=== PATIENT | female | born 1980 | race African-American/Black ===

== ENCOUNTER 2024-08-23 18:22 | Emergency (ER) | payer OTHER ==
[~2024-08-23] VITALS: Ht 165.1 cm; Wt 73.0 kg
[2024-08-23 18:26] VITALS: TEMP 98.6; O2SAT 100
[2024-08-23 19:07] LABS: CLARITY URINE CLOUDY (CLEAR); COLOR URINE YELLOW (YELLOW); GLUCOSE URINE NEGATIVE (NEGATIVE); KETONES URINE TRACE (NEGATIVE); LEUKOCYTE ESTERASE URINE 2+ (NEGATIVE); NITRITE URINE NEGATIVE (NEGATIVE); OCCULT BLOOD URINE 2+ (NEGATIVE); PH URINE 7.5 (4.5-8.0); PROTEIN URINE 1+ (NEGATIVE)
[2024-08-23 19:26] LABS: BACTERIA URINE TRACE; SQUAMOUS EPITHELIAL CELL URINE 1+ /lpf (RARE/1+)
[2024-08-23 19:39] LABS: HEMATOCRIT. 37.3 % (36.0-48.0); HEMOGLOBIN. 11.9 g/dL (12.0-16.0); MEAN CORPUSCULAR HEMOGLOBIN 28.5 pg (28.0-32.0); MEAN CORPUSCULAR HGB CONC 31.9 g/dL (31.0-37.0); MEAN CORPUSCULAR VOLUME 89.3 fL (81.0-99.0); MEAN PLATELET VOLUME 9.1 fl (7.4-10.4); PLATELET 236 x1000/uL (130-400); RED BLOOD CELL COUNT 4.18 mill/uL (4.2-5.4); WHITE BLOOD COUNT 16.9 x1000/uL (4.5-11.0)
[2024-08-23 19:42] LABS: DIFFERENTIAL COMMENT 1
[2024-08-23 19:45] LABS: CHLORIDE 109 mEq/L (98-107); POTASSIUM 3.6 mEq/L (3.5-5.1); SODIUM 137 mEq/L (136-145)
[2024-08-23 19:46] LABS: CALCIUM 9.5 mg/dL (8.7-10.4); CARBON DIOXIDE 21 mEq/L (21-32)
[2024-08-23 19:50] LABS: PROTHROMBIN TIME 10.7 sec (9.6-11.0)
[2024-08-23 19:51] LABS: CREATININE 1.2 mg/dL (0.6-1.0); GLUCOSE 158 mg/dL (70-105)
[2024-08-23 19:52] LABS: UREA NITROGEN BLOOD 9 mg/dL (9-23)
[2024-08-23 19:53] LABS: ALANINE AMINOTRANSFERASE < 7 IU/L (10-49); ALBUMIN 4.2 g/dL (3.2-4.8); ASPARTATE AMINOTRANSFERASE 12 IU/L (<34)
[2024-08-23 19:54] LABS: BILIRUBIN DIRECT 0.2 mg/dL (<=3.0); BILIRUBIN TOTAL 0.6 mg/dL (0.1-1.0); PROTEIN TOTAL 7.5 g/dL (6.0-8.3)
[2024-08-23 19:57] LABS: HCG SCREEN NEGATIVE
[2024-08-23 20:06] LABS: PLATELET ESTIMATE NORMAL
[2024-08-23] MEDS: CEFTRIAXONE 1GM/50ML 50 ML IV NR (21:23)
[2024-08-23 22:56] VITALS: BP 95/59; PULSE 85; RESP 29; O2SAT 95
[2024-08-23] MEDS: ACETAMINOPHEN 325MG TABLET PO ONE (23:17)
== END 2024-08-23 23:30 | disposition short-term general hospital (02) ==
LOC: ER 18:22
DX: N12 Tubulo-interstitial nephritis, not specified as acute or chronic (principal); F31.9 Bipolar disorder, unspecified; J45.909 Unspecified asthma, uncomplicated; F19.90 Other psychoactive substance use, unspecified, uncomplicated
CPT/HCPCS: 36415; 71045; 74176; 80048; 80076; 81003; 84703; 85025; 96365; 99285; J0696

== ENCOUNTER 2025-10-20 22:07 | Emergency (ER) | payer OTHER ==
[~2025-10-20] VITALS: Ht 165.1 cm; Wt 60.0 kg
[2025-10-20 22:16] VITALS: TEMP 98; O2SAT 100
[2025-10-20 23:07] LABS: BASOPHILS % 0.7 % (0.0-2.0); EOSINOPHILS % 1.2 % (0.0-5.0); HEMATOCRIT. 36.0 % (36.0-48.0); HEMOGLOBIN. 11.4 g/dL (12.0-16.0); LYMPHOCYTES % 17.3 % (20.0-50.0); MEAN PLATELET VOLUME 8.5 fl (7.4-10.4); MONOCYTES % 10.9 % (2.0-8.0); NEUTROPHILS % 69.9 % (40.0-76.0); PLATELET 231 x1000/uL (130-400); RED BLOOD CELL COUNT 4.07 mill/uL (4.2-5.4); RED CELL DISTRIBUTION WIDTH 15.9 % (11.6-14.6)
[2025-10-20 23:13] LABS: CREATININE 1.2 mg/dL (0.6-1.0); UREA NITROGEN BLOOD 7 mg/dL (9-23)
[2025-10-20 23:14] LABS: PROTEIN TOTAL 7.5 g/dL (6.0-8.3); TROPONIN I HIGH SENSITIVITY < 4 ng/L (3.0-34)
[2025-10-20 23:15] LABS: ASPARTATE AMINOTRANSFERASE 17 IU/L (<34); BILIRUBIN DIRECT 0.1 mg/dL (<=3.0)
[2025-10-20 23:16] LABS: BILIRUBIN TOTAL 0.5 mg/dL (0.1-1.0)
[2025-10-20] MEDS: ONDANSETRON 4MG ODT PO ONE (23:58)
[2025-10-21] MEDS ORDERED: ONDA4TAB50 MT (02:43)
[2025-10-21 02:50] VITALS: BP 105/73; PULSE 66; RESP 16; O2SAT 98
== END 2025-10-21 03:07 | disposition home or self-care (01) ==
LOC: ER 22:07
DX: R19.7 Diarrhea, unspecified (principal); R11.2 Nausea with vomiting, unspecified; J45.909 Unspecified asthma, uncomplicated; Z79.899 Other long term (current) drug therapy
CPT/HCPCS: 99284; 80076; 80048; 85025; 84484; 36415; 93005; Q0162